=== PATIENT | male | born 1990 | race Caucasian/White ===

== ENCOUNTER 2019-01-29 09:37 | Emergency (ER) | payer MEDICAID ==
[~2019-01-29] VITALS: Ht 185.4 cm; Wt 78.6 kg
[~2019-01-29 09:37] MED LIST: IBUP-1985 PO; LIDOcaine 1% W/epiNEPHrine 1:100,000 20ml vial ONE; NO HOME MEDS
[2019-01-29 09:42] VITALS: BP_DIAS 68
[2019-01-29 10:17] VITALS: BP_SYST 146
[2019-01-29] MEDS ORDERED: ketorolac trometh inj. 60 MG/2 ML VIAL IM ONE (10:45)
[2019-01-29] MEDS ORDERED: CLIN150C8 PO (11:49)
[2019-01-29] MEDS ORDERED: bacitracin 15gm ointment TP ONE (11:50)
[2019-01-29] MEDS ORDERED: clindamycin 150mg capsule PO ONE (11:50)
== END 2019-01-29 12:13 | disposition home or self-care (01) ==
LOC: ER 09:38
DX: L02.31 Cutaneous abscess of buttock (principal); F10.99 Alcohol use, unspecified with unspecified alcohol-induced disorder; Z79.899 Other long term (current) drug therapy; Y90.9 Presence of alcohol in blood, level not specified
CPT/HCPCS: 10060; 96372; 99283; J1885

== ENCOUNTER 2019-05-14 11:50 | Emergency (ER) | payer MEDICAID ==
[~2019-05-14] VITALS: Ht 185.4 cm; Wt 73.0 kg
[~2019-05-14 11:50] MED LIST changes: +CLIN150C8 PO; -LIDOcaine 1% W/epiNEPHrine 1:100,000 20ml vial ONE
[2019-05-14 12:27] LABS: CLARITY,URINE CLEAR (Clear); COLOR,URINE YELLOW (Yellow); GLUCOSE, URINE NEGATIVE (Neg); KETONES,URINE TRACE mg/dl (Neg); LEUKOCYTE ESTERASE ,URINE NEGATIVE (Neg); NITRITES, URINE NEGATIVE (Neg); OCCULT BLOOD,URINE TRACE-LYSED (Neg); PROTEIN,URINE NEGATIVE (Neg); UROBILINOGEN,URINE 0.2 E.U/dL (0.2-1.0)
[2019-05-14 12:29] LABS: BASOPHILS % (AUTO) 0.5 % (0-1); EOSINOPHILS # (AUTO) 0.2 X10'3 (0-0.9); EOSINOPHILS % (AUTO) 1.7 % (0-6); HEMATOCRIT 49.3 % (42.0-52.0); HEMOGLOBIN 16.9 g/dl (14.0-17.9); LYMPHOCYTES % (AUTO) 21.9 % (21-51); MEAN CORPUSCULAR HEMOGLOBIN 30.6 PG (27.0-31.0); MEAN CORPUSCULAR HGB CONC 34.3 g/dL (33.0-36.5); MEAN CORPUSCULAR VOLUME 89.2 FL (78-98); MEAN PLATELET VOLUME 7.4 FL (7.4-10.4); MONOCYTES # (AUTO) 0.9 X10'3 (0-0.9); MONOCYTES % (AUTO) 10.3 % (2-12); NEUTROPHILS % (AUTO) 65.6 % (42-75); PLATELET COUNT 316 X10'3 (140-440); RED BLOOD COUNT 5.53 X10'6 (4.70-6.10); WHITE BLOOD COUNT 9.1 X10'3 (4.5-11.0)
[2019-05-14 12:31] LABS: UA COLLECTION TYPE CLN CATCH MIDSTREAM
[2019-05-14 12:34] LABS: BACTERIA,URINE NONE SEEN /HPF (Neg); CAL OXALATE CRYSTALS FEW /HPF (NEGATIVE); MUCUS STRANDS FEW /LPF (Neg); RBC,URINE 0-2 /HPF (0-2); SQUAMOUS EPITHELIAL CELL,UR FEW /LPF (FEW); WBC,URINE 0-4 /HPF (0-4)
[2019-05-14] MEDS ORDERED: ketorolac tromethamine 15mg/ml inj. IV ONE (12:35)
[2019-05-14] MEDS ORDERED: normal saline 1000ML IV soln IVB ONE (12:40)
[2019-05-14 12:57] LABS: ALANINE AMINOTRANSFERASE 30 U/L (12-78); ALBUMIN 4.2 G/DL (3.4-5.0); ALBUMIN/GLOBULIN RATIO 1.4 (1.1-1.5); ALKALINE PHOSPHATASE 101 IU/L (46-116); ANION GAP 8 (8-16); ASPARTATE AMINO TRANSFERASE 17 U/L (10-37); BILIRUBIN,TOTAL 0.4 MG/DL (0.1-1.0); BLOOD UREA NITROGEN 10 MG/DL (7-18); BUN/CREATININE RATIO 8.8 (5.4-32.0); CHLORIDE 107 MMOL/L (99-107); CREATININE 1.14 MG/DL (0.60-1.10); GLUCOSE 92 MG/DL (70-104); LIPASE 1365 U/L (73-393); POTASSIUM 4.1 MMOL/L (3.5-5.1); SODIUM 141 MMOL/L (135-145); TOTAL CARBON DIOXIDE 26.4 MMOL/L (24-32); TOTAL PROTEIN 7.3 G/DL (6.4-8.2); eGFR 75 ML/MIN
[2019-05-14] MEDS ORDERED: glycopyrrolate 0.2mg/ml inj IV ONE (13:20)
[2019-05-14] MEDS ORDERED: HYDR-3965 PO (15:31)
[2019-05-14] MEDS ORDERED: ONDA4TAB12 PO (15:31)
[2019-05-14 15:56] VITALS: BP 121/53
== END 2019-05-14 16:01 | disposition home or self-care (01) ==
LOC: ER 11:51
DX: K85.90 Acute pancreatitis without necrosis or infection, unspecified (principal); F17.210 Nicotine dependence, cigarettes, uncomplicated; Z72.89 Other problems related to lifestyle; Z79.899 Other long term (current) drug therapy
CPT/HCPCS: 36415; 80053; 81001; 83690; 85025; 96374; 96375; 99285; J1885; J7030; J3490

== ENCOUNTER 2021-05-08 14:08 | Inpatient (IN) | payer MEDICAID ==
[~2021-05-08] VITALS: Ht 185.4 cm; Wt 75.6 kg
[~2021-05-08 14:08] MED LIST changes: +ONDA4TAB12 PO
--- NOTE | 2021-05-08 17:34 | NUR ---
Received pt straight back from triage. Pt came in with c/o suicidal ideation. "I'm tired of all this shit. I just don't want to be here anymore." Pt cooperating with assessment.
[2021-05-08 17:42] LABS: BASOPHILS % (AUTO) 0.7 % (0-1); EOSINOPHILS # (AUTO) 0.1 X10'3 (0-0.9); EOSINOPHILS % (AUTO) 1.2 % (0-6); HEMATOCRIT 46.3 % (42.0-52.0); HEMOGLOBIN 16.2 g/dl (14.0-17.9); LYMPHOCYTES # (AUTO) 1.8 X10'3 (1.1-4.8); LYMPHOCYTES % (AUTO) 28.9 % (21-51); MEAN CORPUSCULAR HEMOGLOBIN 30.5 PG (27.0-31.0); MEAN CORPUSCULAR HGB CONC 35.1 g/dL (33.0-36.5); MEAN CORPUSCULAR VOLUME 86.9 FL (78-98); MEAN PLATELET VOLUME 7.2 FL (7.4-10.4); MONOCYTES # (AUTO) 0.4 X10'3 (0-0.9); MONOCYTES % (AUTO) 6.9 % (2-12); NEUTROPHILS # (AUTO) 3.9 X10'3 (1.8-7.7); NEUTROPHILS % (AUTO) 62.3 % (42-75); PLATELET COUNT 304 X10'3 (140-440); RED BLOOD COUNT 5.33 X10'6 (4.70-6.10); RED CELL DISTRIBUTION WIDTH 13.6 % (11.5-14.5); WHITE BLOOD COUNT 6.3 X10'3 (4.5-11.0)
[2021-05-08] MEDS ORDERED: QUET25TA36 PO (17:43)
[2021-05-08 17:57] LABS: ALANINE AMINOTRANSFERASE 21 U/L (12-78); ALBUMIN 4.2 G/DL (3.4-5.0); ALBUMIN/GLOBULIN RATIO 1.5 (1.1-1.5); ANION GAP 5 (8-16); ASPARTATE AMINO TRANSFERASE 18 U/L (10-37); BILIRUBIN,TOTAL 0.4 MG/DL (0.1-1.0); BLOOD UREA NITROGEN 10 MG/DL (7-18); BUN/CREATININE RATIO 10.1 (5.4-32.0); CALCIUM 8.8 MG/DL (8.5-10.1); CHLORIDE 108 MMOL/L (99-107); CREATININE 0.99 MG/DL (0.60-1.10); GLUCOSE 123 MG/DL (70-104); SODIUM 143 MMOL/L (135-145); TOTAL CARBON DIOXIDE 29.9 MMOL/L (24-32); eGFR 88 ML/MIN
[2021-05-08 17:58] LABS: ALKALINE PHOSPHATASE 117 IU/L (46-116); ETHANOL < 0.010 GM/DL (0.0-0.010)
--- NOTE | 2021-05-08 19:24 | NUR ---
Patient woke up irritable wanting to discharge. He reported not seeing anyone for an eval. Staff clarrified with doctor and it was explained to patient that he has been placed on a 1799. Patient is tearful but cooperative at this time.
[2021-05-08] MEDS ORDERED: traZODone 50mg tablet PO ONE (19:45)
[2021-05-08] MEDS ORDERED: LORazepam 1 MG tablet PO ONE (19:45)
[2021-05-08 20:23] LABS: URINE AMPHETAMINE SCREEN NEGATIVE (Neg); URINE BARBITUATE SCREEN NEGATIVE (Neg); URINE BENZODIAZEPINES SCREEN POSITIVE (Neg); URINE CANNABINOID SCREEN POSITIVE (Neg); URINE COCAINE SCREEN NEGATIVE (Neg); URINE METHADONE SCREEN NEGATIVE (Neg); URINE OPIATE SCREEN NEGATIVE (Neg); URINE PHENCYCLIDINE SCREEN NEGATIVE (Neg)
--- NOTE | 2021-05-08 21:36 | NUR ---
Patient had threatened to leave the unit several times. He was provided one time orders of Trzodone 100mg and Ativan 2mg; patient was cooperative. He has since been laying in bed and currently sleeping without any apparent distress.
--- NOTE | 2021-05-09 00:11 | NUR ---
Patient sleeping with no apparent distress; self repositioning.
--- NOTE | 2021-05-09 01:57 | NUR ---
Patient sleeping with no apparent distress and self repositioning.
--- NOTE | 2021-05-09 04:16 | NUR ---
Patient remains sleeping with no apparent distress; self repositioning.
--- NOTE | 2021-05-09 06:59 | NUR ---
Received patient from NOC shift. Patient asleep in his bed lying on his left side. No signs of distress noted. Normal breathing pattern observed.
--- NOTE | 2021-05-09 08:15 | NUR ---
Pt. asleep lying in bed on his back, spontaneouly breathing, rise and fall of chest noted.
--- NOTE | 2021-05-09 09:17 | NUR ---
Pt. awake, approached nurses station asking when the therapist would be here so he can leave. Pt. was told the social media sr strategy manager is here reviewing his paperwork and would be in shortly.
--- NOTE | 2021-05-09 10:22 | NUR ---
Pt. awake in bed, discussed pt. mental health history with pt. Pt denies SI at this time, states he was taking a newly prescribed prescription of seroquel for the past few weeks and for the last four days and he been on edge and easily irritable and said some things to his fiance and son that he regreted and made him have thoughts of ending his life. He states he's feeling more clear at this time and feels he is safe to return home. He's requesting PRN anxiety medication, hes feeling anxious regarding whether or not he will be released. New order for PRN ativan obtained. Will adminsiter at this time.
[2021-05-09] MEDS: LORazepam 1 MG tablet PO PRN ×3 (10:28→23:08)
--- NOTE | 2021-05-09 11:20 | NUR ---
Pt. lying in bed on his back, alert and oriented to baseline. Stating the ativan has helped take the edge off. [facility] evaluated pt.
[2021-05-09] MEDS ORDERED: LORazepam 2 mg/ml vial IM ONE (11:55)
[2021-05-09] MEDS ORDERED: diphenhydrAMINE 50 mg/ml inj IM ONE (11:55)
[2021-05-09] MEDS ORDERED: haloperidol lactate 5mg/ml inj IM ONE (11:55)
--- NOTE | 2021-05-09 12:09 | NUR ---
Pt. being placed on a 5150, pt. became upset and started pacing the unit stating he didnt need to be placed on a hold and wanted to leave the facilty. Security called. Pt. continued stating he wanted to leave the facility and was becoming loud and escalated. PRN of NOE joe and tanner was obtained from
[2021-05-09] MEDS ORDERED: LORazepam 1 MG tablet PO ONE (12:15)
[2021-05-09] MEDS ORDERED: diphenhydrAMINE 25mg capsule PO ONE (12:15)
[2021-05-09 12:41] LABS: CLARITY,URINE CLEAR (Clear); COLOR,URINE YELLOW (Yellow); GLUCOSE, URINE NEGATIVE (Neg); KETONES,URINE NEGATIVE (Neg); LEUKOCYTE ESTERASE ,URINE NEGATIVE (Neg); NITRITES, URINE NEGATIVE (Neg); OCCULT BLOOD,URINE NEGATIVE (Neg); PROTEIN,URINE NEGATIVE (Neg); UROBILINOGEN,URINE 0.2 E.U/dL (0.2-1.0)
[2021-05-09 12:52] LABS: UA COLLECTION TYPE CLN CATCH MIDSTREAM
--- NOTE | 2021-05-09 13:10 | NUR ---
Pt. in bed on his right side with eyes closed, breathing spontaneously, rise and fall of chest noted.
--- NOTE | 2021-05-09 14:15 | NUR ---
Pt. discharged to [facility] at 2:15pm via wheelchair, escorted by nurses aid and security. Pt. belongings given to nurses aide. Pt. alert and oriented to his baseline. Report given to BRANDYN García.
[2021-05-09] MEDS ORDERED: acetaminophen 325mg tablet PO PRN ×2 (14:45)
[2021-05-09] MEDS ORDERED: magnesium hydroxide 30ml (MOM) UD suspension PO PRN (14:45)
[2021-05-09] MEDS ORDERED: mag hydrox/Alum hydrox/simeth 30ml oral suspension PO PRN (14:45)
[2021-05-09] MEDS ORDERED: loperamide 2mg capsule PO PRN (14:45)
[2021-05-09 16:49] VITALS: BP 114/78
--- NOTE | 2021-05-09 18:01 | NUR ---
Nursing Admit Note Pt admitted to [facility] at 1412. Pt skin check completed and nasal swab done and sent to lab. Pt cooperative and wanting GF to bring him items from home which we discussed. Pt showered and interacted a bit before laying down and fell asleep. Pts belongings inventoried and placed in locker and safe. Pt presented to the ED under advisement of the [facility] in [place]. Patient was meeting with his psychiatrist today and reported suicidal thoughts stating, I just dont want to be here anymore. (OD attempt in 2016). Patient states that he would drive his car into a freeway barrier. Patient denies visual/auditory hallucinations. Patient denies homicidal ideation. Pt currently denies SI and is sleeping, secondary to receiving oral anti-anxiety meds in [facility].
[2021-05-09] MEDS: NICOTINE POLACRILEX 2 MG LOZENGE BC PRN ×2 (19:11→23:08)
[2021-05-09 19:23] VITALS: BP 117/53
[2021-05-09] MEDS: traZODone 50mg tablet PO PRN ×2 (22:14→23:08)
--- NOTE | 2021-05-10 04:44 | NUR ---
Nursing Progress Note Legal hold: 5150 Client on involuntary status for DTS Report received from BRANDYN García with use of SBAR Why are they here: Pt presented to the ED under advisement of the [facility] in [place]. Patient was meeting with his psychiatrist today and reported suicidal thoughts stating, I just dont want to be here anymore. (OD attempt in 2016). Patient states that he would drive his car into a freeway barrier. Patient denies visual/auditory hallucinations. Patient denies homicidal ideation. Pt currently denies SI and is sleeping, secondary to receiving oral anti-anxiety meds in [facility]. Assessment What has happened this shift: Patient was laying in the dark awake at the beginning of shift; shortly after he was observed socializing and watching TV with peers in the community room. Patient is pleasant and cooperative but impulsive at times. After receiving more of his personal belongings there were some items not acceptable for the unit. Patient reported understanding except for when he was told he would not be able to have his vape pen; he went to his room and slammed the door and observed crying while on the phone with SO. No further incidents this shift and he again went to watch TV in the community room. Patient does not currently have scheduled medication but compliant with PRNs provided. Patient denies SI, HI, A/VH this shift; endorses depression. He expressed feeling anxious about what will happen with job d/t his absence. Patient participated in HS snack; observed sleeping and after Repeat Trazodone provided does not appear to be having difficulty. S/I, H/I: Denies A/VH: Denies Sleep: Refer to sleep assessment ADL's: Independent Group attendance: NA Were meds taken: Yes Any med S/E: None observed or reported Mental Status Exam Appearance: Neat and appropriately dressed for the unit Eye contact: Good Behavior: Pleasant and cooperative, social, impulsive Speech: Clear, audible, regular rate/rhythm Mood: Labile Affect: Congruent Thought process: Linear Thought Content: Meeting needs Cognition: A/O x4 Insight: Poor Judgment: Poor Interventions PRN's used: Ativan 1mg x2, Trazodone 100mg x2, Nicotine lozenges Therapeutic interventions: Maintained a safe and supportive environment, provided clear and simple instructions, attempted to orient to reality, encouraged participation on the unit and independent performance of ADLs, monitored for pain and provided needed intervention, clarified diet order, maintained fall precautions and Q 15min safety checks. Restraints/seclusion/emergency medication: NA Justification of Continued Inpatient Treatment: Pt required crisis interruption with medication management and monitoring in a safe and therapeutic environment.
[2021-05-10] MEDS ORDERED: nicotine 21mg patch - 24 hr TD SCH (08:00)
[2021-05-10 08:09] VITALS: BP 104/60
[2021-05-10 09:08] LABS: CHOL/HDL RATIO 2.8 (0.00-4.99); CHOLESTEROL 133 MG/DL (0-200); HDL CHOLESTEROL 48 MG/DL (35-60); LDL CHOLESTEROL 74 MG/DL (50-100); TRIGLYCERIDES 75 MG/DL (20-135)
[2021-05-10] MEDS: LORazepam 1 MG tablet PO PRN ×2 (11:43→15:47)
[2021-05-10] MEDS: NICOTINE POLACRILEX 2 MG LOZENGE BC PRN (13:42)
--- NOTE | 2021-05-10 16:23 | NUR ---
Nursing Progress Note: Deep Legal hold: 5150 Client on involuntary status for DTS Report received from CRN with use of SBAR Why are they here: Pt presented to the ED under advisement of the [facility] in [place]. Patient was meeting with his psychiatrist today and reported suicidal thoughts stating, I just dont want to be here anymore. (OD attempt in 2016). Patient states that he would drive his car into a freeway barrier. Assessment What has happened this shift: Pt. received sleeping, woke to receive his medication and 1:1 assessment completed. Pt. presents as anxious requesting to see the doctor to get out of here Pt. denies SI, HI, but presents as emotional and tearful stating Im just so disappointed I got myself here, Im worried I could lose my job. Pt. reports I know this episode had allot to do with the 100mg Seroquel. Pt. has plans to discharge home and get back to work At 1100 pt. approached staff requesting a shower. In the afternoon pt. requested Ativan for anxiety; med was given. Pt. ate his meals in the dining room with cohorts, but isolates to himself. At 1545 pt. c/o anxiety and requested Ativan; med given. He spent a large part of my shift in his room alone, and napped intermittently. Pt. is requesting that his girlfriend be able to user support analyst supervisor his phone from his property tomorrow to be able to complete a work spreadsheet assignment. S/I, H/I: Denies A/VH: Denies Sleep: 5.2 hr per NOC, intermittent naps ADL's: Independent Group attendance: NA Were meds taken: Yes Any med S/E: None observed or reported Mental Status Exam Appearance: Male with long chin gonzalez, clean, and dressed in street clothes Eye contact: Good Behavior: Pleasant, depressed Speech: Clear Mood: Tearful, Emotional, and Anxious Affect: Congruent Thought process: Linear Thought Content: Meeting needs Cognition: A/O x4 Insight: Poor Judgment: Poor Interventions PRN's used: Nicotine lozenge, Ativan X2 Therapeutic interventions: Maintained a safe and supportive environment, provided clear and simple instructions, attempted to orient to reality, encouraged participation on the unit and independent performance of ADLs, monitored for pain and provided needed intervention, clarified diet order, maintained fall precautions and Q 15min safety checks. Restraints/seclusion/emergency medication: NA Justification of Continued Inpatient Treatment: Pt required crisis interruption with medication management and monitoring in a safe and therapeutic environment.
[2021-05-10] MEDS ORDERED: NICO-687 TD (18:23)
[2021-05-10] MEDS ORDERED: TRAZ-251 PO (18:23)
--- NOTE | 2021-05-10 19:34 | NUR ---
DISCHARGE Patient provided discharge instructions, lyric writer emphasis to follow up with his primary care, he reported understanding. Medications ordered were electronically sent to Scar Zhang). PCT went over all patient belongings and given back to him. Patient appears stable and happy to home to his family. PCT walked patient out and Tre picked him up.
[2021-05-10 19:39] VITALS: BP 105/64
[2021-05-11 12:11] LABS: HEMOGLOBIN A1C 4.8 % (4.5-6.2)
== END 2021-05-10 19:34 | disposition home or self-care (01) | DRG 753 ==
LOC: ER 14:09 → ED HOLD 05-09 12:00 → ADULT MH 05-09 14:00
PROVIDERS: ADMIT Psychiatry & Neurology Psychiatry; ATTEND Psychiatry & Neurology Psychiatry
DX: F39 Unspecified mood [affective] disorder (principal); R45.851 Suicidal ideations; F17.210 Nicotine dependence, cigarettes, uncomplicated; F43.10 Post-traumatic stress disorder, unspecified; F12.90 Cannabis use, unspecified, uncomplicated; Z20.822 Contact with and (suspected) exposure to COVID-19; F41.0 Panic disorder [episodic paroxysmal anxiety]; Z81.8 Family history of other mental and behavioral disorders; Z59.02 Unsheltered homelessness
CPT/HCPCS: 36415; 80053; 80061; 80305; 80320; 81003; 83036; 85025; 87081; 87635; 99285; C9803; Q0163